=== PATIENT | female | born 1980 | race Caucasian/White ===

== ENCOUNTER 2023-03-12 17:54 | Emergency (ER) | payer SELFPAY ==
[2023-03-12 18:11] VITALS: BP 127/79; PULSE 111
[2023-03-12] MEDS ORDERED: Methocarbamol 1,000 MG/10 ML SDV IM ONE (18:15)
[2023-03-12] MEDS ORDERED: Ketorolac 30 MG/ML SDV IM ONE (18:15)
[2023-03-12] MEDS ORDERED: Acetaminophen/oxyCODONE 325-5 MG Tab PO ONE (18:16)
[2023-03-12] MEDS ORDERED: methylPREDNISolone Sodium Succinate 125 MG/2 ML SDV IM ONE (18:16)
[2023-03-12] MEDS ORDERED: Acetaminophen/HYDROcodone 325-5 MG Tab PO ONE (18:38)
[2023-03-12] MEDS ORDERED: Methocarbamol 500 MG Tab PO ONE (18:45)
[2023-03-12] MEDS ORDERED: Ketorolac 10 MG Tab PO ONE (18:51)
== END 2023-03-12 19:12 | disposition home or self-care (01) ==
LOC: KA.ED 17:54
DX: M54.16 Radiculopathy, lumbar region (principal); M54.50 Low back pain, unspecified; F17.210 Nicotine dependence, cigarettes, uncomplicated; Z88.0 Allergy status to penicillin; Z91.013 Allergy to seafood
CPT/HCPCS: 72100; 96372; 99283; A9270-GY; J2930